=== PATIENT | male | born 1945 | race Caucasian/White ===

== ENCOUNTER 2022-10-22 18:38 | Emergency (ER) | payer OTHER | END 2022-10-22 21:55 | disposition home or self-care (01) | LOC: JP.ED 18:38 | DX: S43.102A Unspecified dislocation of left acromioclavicular joint, initial encounter (principal); I10 Essential (primary) hypertension; I48.91 Unspecified atrial fibrillation; K21.9 Gastro-esophageal reflux disease without esophagitis; E03.9 Hypothyroidism, unspecified; Z86.16 Personal history of COVID-19; Z79.899 Other long term (current) drug therapy; W08.XXXA Fall from other furniture, initial encounter | CPT/HCPCS: 73030-26-LT; 73030-LT; 99283 ==